=== PATIENT | male | born 1940 | race Caucasian/White ===

== ENCOUNTER 2024-06-01 07:41 | Day surgery (SDC) | payer OTHER ==
[2024-06-01 08:52] LABS: MPV 8.5 fL (7.6-11.3); Platelets 231 thou/uL (152-406)
[2024-06-01 09:06] LABS: PT Prothrombin Time 11.9 SECONDS (9.4-12.5); Protime INR 1.06
[2024-06-01 09:44] VITALS: BMI 24.4
[2024-06-01 11:47] VITALS: O2SAT 99
[2024-06-01 13:20] VITALS: BP 130/68; TEMP 97
--- NOTE | 2024-06-02 12:52 | RAD REPORT ---
Exam: Myelography Lumbar Clinical History: M54.50, M54.16 Consent: Benefits and risks were explained to the patient. Informed consent was obtained. Timeout pro cedure was performed. Complication: None immediate. Total Images: 3 fluoroscopic spot images Total Fluoro Time: 2.6 minutes Procedure: The patient was placed in prone position. 1% lidocaine was used as local anesthetic. A 22 gauge spinal needle was used to access the spinal canal at space posteriorly under fluoroscopic guidance. Approximately 12 cc of Isovue was injected into the intrathecal space. The needle was remov ed. myelogram was performed. Hemostasis was achieved. The patient tolerated the procedure well without any adverse reactions and was transferred to the CT department for CT myelogram in stable con dition. Impression: Lumbar myelogram as described. Please refer to the CT myelogram study performed on the same day for further details.
--- NOTE | 2024-06-02 12:54 | RAD REPORT ---
EXAMINATION: CT LUMBAR SPINE WITHOUT CONTRAST CLINICAL INDICATION: M54.50, M54.16 TECHNIQUE: Axial CT images were obtained through the lumbar spine in soft tissue and bone windows wit hout intravenous contrast. Intrathecal contrast placed into the spinal canal. Coronal and Sagittal reformatted images were created from the data set. One or more of the following dose reduction techni ques were used: Automated exposure control, adjustment of the mA and/ or kV according to patient size, and/or iterative reconstruction. Unless otherwise specified, incidental findings do not require dedicated imaging follow-up. COMPARISON: No prior exam. FINDINGS: Mild spondylosis T12-L1. Disc bulge, ligamentum flavum and facet hypertrophy L1-2. Osteophytes are present.. Thecal sac 4 mm. Marked narrowing of the right and moderate narrowing of the left neural foramina. Slight posterior subluxation L2 on L3. Subchondral sclerosis. Disc is thinned with vacuum phenomena. Osteophytes and facet hypertrophy present. The transverse diameter of the thecal sac 7 mm. Moderate narrowing of the neural foramina. Slight posterior subluxation L3 on L4. Disc vacuum phenomena. Ligamentum flavum and facet hypertrophy . Osteophytes. Thecal sac 5 mm. Marked narrowing of the left neural foramina. Laminectomies L3 and L4. Bony fusion. Slight anterior subluxation L4 on L5. Facet hypertrophy marked narrowing left neural foramina. Bony f ragments along the lateral aspect of the sac L5 4-5. Transverse diameter sac 5 mm. Mild spondylosis L5-S1. Spondylolysis L5 No acute fracture. Mild to moderate scoliosis thoracolumbar spine IMPRESSION: Spondylosis L1-2 results in marked central spinal stenosis Spondylosis L-2-3 results in mild to moderate central spinal stenosis Spondylosis L3-4 results in marked central spinal stenosis Spondylosis L4-5 results in moderate central spinal stenosis Postsurgical changes lower lumbar spine
== END 2024-06-01 13:15 | disposition home or self-care (01) ==
LOC: DS 07:41
PROVIDERS: ATTEND Orthopaedic Surgery Orthopaedic Surgery of the Spine
DX: M54.50 Low back pain, unspecified (principal); M54.16 Radiculopathy, lumbar region
CPT/HCPCS: 36415; 85049; 85610; 85730; 72131; 62304; Q9966